=== PATIENT | male | born 1990 | race Hispanic/Latino ===

== ENCOUNTER 2021-10-17 10:01 | Emergency (ER) | payer SELFPAY ==
--- OUTSIDE RECORDS SUMMARY | 2021-10-17 10:05 | XMS REPORT | Continuity of Care Document ---
:1990 Author Organization [facility] t Address [address] [place] [address] Care Team Providers Name Role Phone PCP, DOES NOT HAVE A Primary Care Physician Unavailable Cristy Long Attending Clinician Cristy WEBB Attending Clinician Unavailable Phuong Long Attending Clinician Jose Luis HIGGINBOTHAM Attending Clinician Unavailable Mihaela Miller Attending Clinician Dianne HIGGINBOTHAM, T Attending Clinician Unavailable Mihaela GOODRICH Attending Clinician Unavailable Payers Payer Name Policy Type Policy Number Effective Date Expiration Date S ource Problems Condition Condition Condition Status Onset Resolution Last Treating Co mments Source Name Details Category Date Date Treatment Clinician Date Rhabdomyol Rhabdomyol Disease [facility] 2014[facility] 10-12 ity of 00:00: [place] 00 [facility] Branch Drug abuse Drug abuse Disease Active 2014-09 U nivers 10-12 ity of 00:00: [place] 00 Medical Branch Attention Attention Disease Active Overview: Univers deficit deficit 05-08 Formattin ity o f hyperactiv hyperactiv 00:00: g of this [place] ity ity 00 note Medical disorder disorder might be Bran ch (ADHD) (ADHD) different from the original. ICD10 Diagnosis Term Life Underwriter Utility Allergies, Adverse Reactions, Alerts Allergy Allergy Status Severity Reaction(s) Onset Inactive Treating Comm ents Source Name Type Date Date Clinician Mushroom Propensi Active Hives 2014-09 Univer s ty to 2-08 ity of adverse 00:00: [place] reaction 00 Medical s Branch MUSHROOM DRUG Active Hives 2014-09 Univers INGREDI 2-08 ity of 00:00: [place] 00 Medical Branch Social History Social Habit Start Date Stop Date Quantity Comments Source Exposure to Not sure University of SARS-CoV-2 [place] [facility] (event) Branch History SDOH University o f Alcohol Frequency [place] [facility] History SDOH University o f Alcohol Std [place] [facility] Drinks Branch History SDIA University o f Alcohol Binge [place] [facility] Alcohol intake 2021-06-29 2021-06-29 0 /d University of 00:00:00 00:00:00 [facility] Tobacco Comment 2015-10-16 2015-10-16 quit dipping 8 Unive rsity of 00:00:00 00:00:00 months ago [facility] Alcohol Comment 2015-10-16 2015-10-16 occasionally Univers ity of 00:00:00 00:00:00 [facility] Cigarettes smoked 2015-08-11 2015-08-11 Univers ity of current (pack per 00:00:00 00:00:00 [facility] [place] [facility]) - Reported Branch Cigarette 2015-08-11 2015-08-11 University of pack-years 00:00:00 00:00:00 [facility] Tobacco use and 2015-08-11 2015-08-11 Former user Universi ty of exposure 00:00:00 00:00:00 [facility] Sex Ass[birth year] At [birth year] Universit y of 00:00:00 00:00:00 [facility] Smoking Status Start Date Stop Date Source Current every day smoker 2015-08-11 00:00:00 Uni versity of [facility] Medications Ordered Filled Start Stop Current Ordering Indication Dosage Frequency Signature Comments Components Source Medication Medication Date Date Medication? Clinician (SIG) Name Name lidocaine-r 2020-09- No 3mL 3 mL, Univ ers acepinep-te 0-16 06-18 Topical, ity of tracaine 19:15: 19:00 ONCE, 1 [place] (L.E.T. 00 :00 dose, On Medical (LIDO-EPINE Sat Branch PH-TETRA)) 06/18/21 4-0.05-0.5 at 1415, % topical Routine gel 3 mL ibuprofen 2020-09 Yes [id number] 600mg Take 1 Univers 600 mg 0-16 tablet by ity of tablet 00:00: mouth [place] 00 every 6 Medical (six) Branch hours as needed for Pain (scale 4-6). ibuprofen 2020-09 Yes [id number] 600mg Take 1 Univers 600 mg 0-16 tablet by ity of tablet 00:00: mouth [place] 00 every 6 Medical (six) Branch hours as needed for Pain (scale 4-6). casirivimab 2020- No 1200mg 1,200 mg, Univers -imdevimab 05-13 Subcutaneo it y of (REGEN-COV 04:45: 04:23 us, ONCE, [place] (EUA)) 00 :00 1 dose, Medical injection [facility] 05/12/21 Bran ch 1,200 mg at 2345, Routine ibuprofen 2020- No 600mg 600 mg, Uni vers (IBU) 05-13 Oral, ity of tablet 600 04:00: 03:23 ONCE, 1 [place] as mg 00 :00 dose, [facility] Medical 05/12/21 at Branch 2300, TRICIA albuterol Yes [id number] 2{puff} Inhale 2 Univers 90 05-12 Puffs ity of mcg/actuati 00:00: every 4 [place] as on inhaler 00 (four) Medical hours as Branch needed for Wheezing or Shortness of Breath. benzonatate Yes [id number] 100mg Take 1 Univers 100 mg 05-12 capsule by ity of capsule 00:00: mouth 3 [place] 00 (three) Medical times Branch daily as needed for Cough. dextrometho Yes [id number] 10mL Take 10 mL Univers rphan-guaif 05-12 by mouth ity of enesin 00:00: every 6 [place] 10-100 mg/5 00 (six) Medical mL solution hours as Bran ch needed for Cough. ondansetron Yes [id number] 4mg Take 1 Univers 4 mg 05-12 tablet by ity of disintegrat 00:00: mouth [place] ing tablet 00 every 12 Medic al (twelve) Branch hours as needed for Nausea and Vomiting (N/V). albuterol Yes [id number] 2{puff} Inhale 2 Univers 90 9-09 Puffs ity of mcg/actuati 00:00: every 4 [place] as on inhaler 00 (four) Medical hours as Branch needed for Wheezing or Shortness of Breath. benzonatate 2020-0 Yes [id number] 100mg Take 1 Univers 100 mg 9-09 capsule by ity of capsule 00:00: mouth 3 [place] 00 (three) Medical times Branch daily as needed for Cough. dextrometho 2020-0 Yes [id number] 10mL Take 10 mL Univers rphan-guaif 9-09 by mouth ity of enesin 00:00: every 6 [place] 10-100 mg/5 00 (six) Medical mL solution hours as Bran ch needed for Cough. ondansetron 2020-0 Yes [id number] 4mg Take 1 Univers 4 mg 9-09 tablet by ity of disintegrat 00:00: mouth [place] ing tablet 00 every 12 Medic al (twelve) Branch hours as needed for Nausea and Vomiting (N/V). albuterol 2020-0 Yes [id number] 2{puff} Inhale 2 Univers 90 9-09 Puffs ity of mcg/actuati 00:00: every 4 [place] as on inhaler 00 (four) Medical hours as Branch needed for Wheezing or Shortness of Breath. benzonatate 2020-0 Yes [id number] 100mg Take 1 Univers 100 mg 9-09 capsule by ity of capsule 00:00: mouth 3 [place] 00 (three) Medical times Branch daily as needed for Cough. dextrometho 2020-0 Yes [id number] 10mL Take 10 mL Univers rphan-guaif 9-09 by mouth ity of enesin 00:00: every 6 [place] 10-100 mg/5 00 (six) Medical mL solution hours as Bran ch needed for Cough. ondansetron 2020-0 Yes [id number] 4mg Take 1 Univers 4 mg 9-09 tablet by ity of disintegrat 00:00: mouth [place] ing tablet 00 every 12 Medic al (twelve) Branch hours as needed for Nausea and Vomiting (N/V). albuterol 2020-0 Yes [id number] 2{puff} Inhale 2 Univers 90 9-09 Puffs ity of mcg/actuati 00:00: every 4 [place] as on inhaler 00 (four) Medical hours as Branch needed for Wheezing or Shortness of Breath. benzonatate 2020-0 Yes [id number] 100mg Take 1 Univers 100 mg 9-09 capsule by ity of capsule 00:00: mouth 3 [place] 00 (three) Medical times Branch daily as needed for Cough. dextrometho 2020-0 Yes [id number] 10mL Take 10 mL Univers rphan-guaif 9-09 by mouth ity of enesin 00:00: every 6 [place] 10-100 mg/5 00 (six) Medical mL solution hours as Bran ch needed for Cough. ondansetron 0 Yes [id number] 4mg Take 1 Univers 4 mg 9-09 tablet by ity of disintegrat 00:00: mouth [place] ing tablet 00 every 12 Medic al (twelve) Branch hours as needed for Nausea and Vomiting (N/V). albuterol Yes [id number] 2{puff} Inhale 2 Univers 90 9-09 Puffs ity of mcg/actuati 00:00: every 4 [place] as on inhaler 00 (four) Medical hours as Branch needed for Wheezing or Shortness of Breath. benzonatate 0 Yes [id number] 100mg Take 1 Univers 100 mg 9-09 capsule by ity of capsule 00:00: mouth 3 [place] 00 (three) Medical times Branch daily as needed for Cough. dextrometho 2020-0 Yes [id number] 10mL Take 10 mL Univers rphan-guaif 9-09 by mouth ity of enesin 00:00: every 6 [place] 10-100 mg/5 00 (six) Medical mL solution hours as Bran ch needed for Cough. ondansetron 0 Yes [id number] 4mg Take 1 Univers 4 mg 9-09 tablet by ity of disintegrat 00:00: mouth [place] ing tablet 00 every 12 Medic al (twelve) Branch hours as needed for Nausea and Vomiting (N/V). Immunizations Ordered Filled Immunization Date Status Comments [facility] e Immunization Name Name Td 2015-10-30 Completed University of 00:00:00 [facility] Td 2015-10-30 Completed University of 00:00:00 [facility] Td 2015-10-30 Completed University of 00:00:00 [facility] Td 2015-10-30 Completed University of 00:00:00 [facility] Td 2015-10-30 Completed University of 00:00:00 [facility] Influenza Virus 2015-08-13 Completed Universit y of Vaccine Quad IM 3+ 00:00:[facility] Influenza Virus 2015-08-13 Completed Universit y of Vaccine Quad IM 3+ 00:00:00 [facility] Influenza Virus 2015-08-13 Completed Universit y of Vaccine Quad IM 3+ 00:00:00 [facility] Influenza Virus 2015-08-13 Completed Universit y of Vaccine Quad IM 3+ 00:00:00 [facility] Influenza Virus 2015-08-13 Completed Universit y of Vaccine Quad IM 3+ 00:00:00 [facility] Vital Signs Vital Name Observation Time Observation Value Comments Source Systolic blood 2021-06-30 00:17:00 143 mm[Hg] Univer sity of pressure [facility] Diastolic blood 2021-06-30 00:17:00 91 mm[Hg] Unive rsity of [facility] Heart rate 2021-06-30 00:17:00 83 /min [facility] ty [facility] Body temperature 2021-06-30 00:17:00 37.17 [facility] [place] Respiratory rate 2021-06-30 00:17:00 19 /min [facility] [place] Body height 2021-06-30 00:17:00 172.7 cm [facility] acute hospital Body weight 2021-06-30 00:17:00 63.866 kg General acute hospital BMI 2021-06-30 00:17:00 21.41 kg/m2 General acute hospital Oxygen saturation in 2021-06-30 00:17:00 99 /min [facility] Arterial blood by [facility] Pulse oximetry Branch Systolic blood 2021-06-18 17:22:00 133 mm[Hg] Univer sity of pressure [facility] Diastolic blood 2021-06-18 17:22:00 89 mm[Hg] Unive rsity of pressure [facility] Heart rate 2021-06-18 17:22:00 78 /min Universi ty [facility] Body temperature 2021-06-18 17:22:00 36.78 [facility] [place] Respiratory rate 2021-06-18 17:22:00 20 /min [facility] [place] Body height 2021-06-18 17:22:00 170.2 cm Universi ty of [place] [facility] Body weight 2021-06-18 17:22:00 68.04 kg Universi ty of [place] [facility] BMI 2021-06-18 17:22:00 23.49 kg/m2 Universi ty of [place] [facility] Oxygen saturation in 2021-06-18 17:22:00 100 /min University of Arterial blood by [facility] Pulse oximetry Branch Systolic blood 2021-05-13 04:00:00 149 mm[Hg] Univer sity of pressure [place] [facility] Diastolic blood 2021-05-13 04:00:00 94 mm[Hg] Unive rsity of pressure [place] [facility] Heart rate 2021-05-13 04:00:00 91 /min Universi ty of [place] [facility] Respiratory rate 2021-05-13 04:00:00 16 /min [facility] [place] [facility] [place] Oxygen saturation in 2021-05-13 04:00:00 99 /min University of Arterial blood by [facility] Pulse oximetry Branch Body height 2021-05-13 02:53:00 170.2 cm Universi ty of [place] [facility] Body weight 2021-05-13 02:53:00 68.04 kg Universi ty of [place] [facility] BMI 2021-05-13 02:53:00 23.49 kg/m2 Universi ty [facility] [place] [facility] Body temperature 2021-05-13 02:53:[address] [facility] Procedures Procedure Date / Time Performed Performing Clinician Vicki e GENERAL 2021-06-30 00:42:43 Ross Webb [place] o f [facility] ASSIGNMENT OF BENEFITS 2021-06-30 00:30:21 Doctor Unassigned, No [facility] Medical Branch NOTICE OF PRIVACY 2021-06-30 00:12:01 Doctor Unassigned, No Univ ersity [facility] PRACTICES [facility] Medical Branch CONSENT/REFUSAL FOR 2021-06-30 00:11:45 Doctor Unassigned, No Un iversity of [place] DIAGNOSIS AND [facility] Medical Branch TREATMENT ED LACERATION REPAIR 2021-06-18 19:10:50 [facility] CONSENT/REFUSAL FOR 2021-06-18 16:57:14 Doctor Unassigned, No [facility] Name Medical Branch TREATMENT COVID-19 (ID NOW RAPID 2021-05-13 02:59:00 Tee Goodrich [facility] TESTING) [facility] NOTICE OF PRIVACY 2021-05-13 02:39:53 Doctor Unassigned, No [facility] PRACTICES Name [facility] Branch CONSENT/REFUSAL FOR 2021-05-13 02:39:34 Doctor Unassigned, No [facility] [place] DIAGNOSIS AND Name Medical Branch TREATMENT Encounters Start End Encounter Admission Attending Care Care Encounter Source Date/Time Date/Time Type Type Clinicians Facility Department ID 2021-06-29 2021-06-29 Emergency [facility] [id number] Univers 19:20:00 19:56:00 Ross Keller [id number] i ty of [place] [id number] [place] [id number] [place] [id number] [place] 2021-06-29 2021-06-29 Emergency X [facility] ERT [id number] Univers 19:20:00 19:56:00 ROSS cunha of [facility] 2021-06-18 2021-06-18 Emergency Tom Mckinney [facility] [id number] Univers 12:30:00 14:34:00 Phuong Keller [id number] i ty of [place] [id number] [place] [phone] [facility] 084 [place] 2021-06-18 2021-06-18 Emergency X [facility] ERT [id number] Univers 11:58:00 11:58:00 ity of [facility] 2021-05-14 2021-05-14 Telephone DELORES Amaya [id number] Univers 00:00:00 00:00:00 Dottie BARRERA [id number] it y [facility] [id number] [place] [id number] [facility] 019 Branch 2021-05-12 2021-05-13 Emergency Joleen [facility] [id number] Univers 22:24:00 00:30:00 Tee Keller [id number] i ty of [place] [id number] [facility] [id number] [facility] 084 Branch 2021-05-13 2021-05-13 Letter DELORES Dean [id number] Univers 00:00:00 00:00:00 (Out) Tracy BARRERA [id number] it y of [facility] [id number] [facility] [phone] [facility] 019 Branch 2021-05-12 2021-05-12 Emergency X JOLEEN [facility] ERT [id number] Univers 21:40:00 21:40:00 TEE cunha [facility] Results Test Description Test Time Test Comments Results Result Comments Source COVID-19 (ID NOW RAPID TESTING) 2021-05-13 03:17:35 Test Item Value Reference Range Interpretation Comme nts SARS-CoV-2 Rapid ID NOW (test code Positive Not Detected A = [id number]) GISELLE (test code = GISELLE) ID NOW COVID-19 Assay is an isothermal nucleic acid amplification test intended for the qualitative detection of nucleic acid from SARS-CoV-2 viral RNA in nasopharyngeal ([employer]ARET[employer] INSPECTOR) specimens. It is used under Emergency Use Authorization (EUA) by FDA. The limit of detection (LOD) of the assay is 125 Genome Equivalents/mL. A positive result is indicative of the presence of SARS-CoV-2 RNA. ?Clinical correlation with patient history and other diagnostic information is necessary to determine patient infection status. A negative (Not Detected) result does not preclude SARS-CoV-2 infection. In patients with a high suspicion of SARS-CoV-2 infection, negative results should be treated as presumptive negative and a new specimen should be tested with alternative nucleic acid amplification molecular test. Invalid: Please collect a new specimen for repeat patient testing if clinically indicated. Lab Interpretation (test code = Abnormal 34676-7) [facility]
[2021-10-17 10:57] LABS: Absolute Lymphocytes (CBC) 2.3 K/uL (0.7-4.9); Hematocrit 45.3 % (39.6-49.0); Lymphocytes % 25.7 % (15.3-44.8); MPV 7.5 fL (7.6-11.3); RBC Red Blood Cell Count 5.23 M/uL (4.33-5.43)
[2021-10-17 11:17] LABS: ALT/SGPT 19 U/L (12-78); AST/SGOT 9 U/L (15-37); Albumin 3.9 g/dL (3.4-5.0); Alkaline Phosphatase 91 U/L (45-117); BUN Blood Urea Nitrogen 10 mg/dL (7-18); Bicarbonate 30 mmol/L (21-32); Bilirubin Direct < 0.1 mg/dL (0-0.2); Bilirubin Total 0.2 mg/dL (0.2-1.0); Glucose Level 87 mg/dL (74-106); Lipase 167 U/L (73-393); Protein, Total 7.8 g/dL (6.4-8.2); Sodium Level 139 mmol/L (136-145)
--- NOTE | 2021-10-17 11:49 | RAD REPORT ---
EXAM DESCRIPTION: CTAbdomen Pelvis W Contrast - 10/17/2021 11:38 am CLINICAL HISTORY: RLQ abd pain, rule out appendicitis COMPARISON: No comparisons TECHNIQUE: CT of the abdomen and pelvis was performed. All CT scans are performed using dose optimization technique as appropriate and may include automated exposure control or mA/KV adjustment according to patient size. FINDINGS: Lower chest: No acute abnormality. Liver: No acute abnormality or suspicious lesions. Biliary: No biliary ductal dilatation. Stomach: No significant focal abnormality. Duodenum: No significant focal abnormality. Pancreas: No significant abnormality. Spleen: No significant abnormality. Adrenal: No suspicious lesions. Kidney/ureter: No hydronephrosis. No renal calculi. Retroperitoneum: No retroperitoneal adenopathy. Vascular: No aneurysm. Bowel: No significant focal abnormality. Normal appendix. Peritoneum: No ascites or free air. Bladder: Circumferential bladder wall thickening. Reproductive: No adnexal masses. Bones: No acute fracture. Other: n/a IMPRESSION: Circumferential bladder wall thickening could reflect cystitis. Normal appendix. No othe r acute findings are identified.
[2021-10-17] MEDS ORDERED: MORPHINE 4 MG/ML SYR ONE (11:52)
[2021-10-17] MEDS ORDERED: ONDANSETRON 4 MG/2 ML VIAL ONE (11:53)
[2021-10-17 12:15] LABS: Urine Blood Negative (Negative); Urine Glucose Negative (Negative); Urine Protein Negative (Negative); Urine Specific Gravity 1.015 (1.005-1.030); Urine pH 7.5 (5.0-7.0)
[2021-10-17 12:28] LABS: Urine Bacteria NONE SEEN /HPF (NONE SEEN); Urine RBC <5 /HPF (NONE SEEN)
--- NOTE | 2021-10-17 12:41 | EDPHYS ---
Physician Documentation [facility] Name: Jose J Hanks Age: 31 yrs Sex: Male : 1990 Arrival Date: 10/17/2021 Time: 10:04 Bed 27 Private MD: ED Physician Duke Weston HPI: 10/17 11:22 This 31 yrs old Male presents to ER via Ambulatory with complaints of rn Abdominal Pain. 11:22 The patient presents with abdominal pain right lower quadrant. Onset: The rn symptoms/episode began/occurred 1 week(s) ago. The symptoms do not radiate. Associated signs and symptoms: Pertinent positives: nausea, Pertinent negatives: blood in stools, chest pain, constipation, fever, hematuria, shortness of breath, testicular pain, vomiting, vomiting blood. The symptoms are described as crampy, sharp. Modifying factors: The symptoms are alleviated by nothing, the symptoms are aggravated by movement, touching the area. Severity of pain: At its worst the pain was moderate in the emergency department the pain is unchanged. The patient has not experienced similar symptoms in the past. The patient has not recently seen a physician. Historical: - Allergies: 10:28 mushrooms; ll1 - PMHx: 10:28 Hypertensive disorder; Hypercholesterolemia; bad liver, heart failure; ll1 - PSHx: 10:28 None; ll1 - Immunization history:: Client reports having NOT received the Covid vaccine. - Social history:: Smoking status: Patient reports the use of cigarette tobacco products, smokes one-half pack cigarettes per day. - Family history:: not pertinent. - Hospitalizations: : No recent hospitalization is reported. ROS: 11:22 Constitutional: Negative for fever, chills, and weight loss, Eyes: Negative for injury, rn pain, redness, and discharge, Cardiovascular: Negative for chest pain, palpitations, and edema, Respiratory: Negative for shortness of breath, cough, wheezing, and pleuritic chest pain, Abdomen/GI: Negative for vomiting, diarrhea, and constipation, Back: Negative for injury and pain, : Negative for injury, bleeding, discharge, and swelling, MS/Extremity: Negative for injury and deformity, Skin: Negative for injury, rash, and discoloration, Neuro: Negative for headache, weakness, numbness, tingling, and seizure. Exam: 11:38 Constitutional: This is a well developed, well nourished patient who is awake, alert, rn and in no acute distress. Head/Face: Normocephalic, atraumatic. Eyes: Periorbital areas with no swelling, redness, or edema. Cardiovascular: Regular rate and rhythm. No pulse deficits. Respiratory: No increased work of breathing, no retractions or nasal flaring. Abdomen/GI: soft, mild RLQ tenderness, no rebound or masses Skin: Warm, dry MS/ Extremity: Pulses equal, no cyanosis. Neuro: Awake and alert, GCS 15 Vital Signs: 10:28 BP 131 / 90; Pulse 81; Resp 17; Temp 98.6; Pulse Ox 100% ; Weight 74.84 kg; Height 5 ll1 ft. 7 in. (170.18 cm); Pain 9/10; 12:29 BP 129 / 93; Pulse 65; Resp 14; Pulse Ox 98% ; Pain 0/10; lr4 10:28 Body Mass Index 25.84 (74.84 kg, 170.18 cm) ll1 MDM: 10:33 Patient medically screened. rn 12:39 Differential diagnosis: appendicitis, diverticulitis, non-specific abd pain, rn Ureterolithiasis, urinary tract infection. Data reviewed: vital signs, nurses notes, lab test result(s), radiologic studies, CT scan, and as a result, I will discharge patient. Counseling: I had a detailed discussion with the patient and/or guardian regarding: the historical points, exam findings, and any diagnostic results supporting the discharge/admit diagnosis, lab results, radiology results, the need for outpatient follow up, to return to the emergency department if symptoms worsen or persist or if there are any questions or concerns that arise at home. Response to treatment: the patient's symptoms have markedly improved after treatment, and as a result, I will discharge patient. Special discussion: I discussed with the patient/guardian in detail that at this point there is no indication for admission to the hospital. It is understood, however, that if the symptoms persist or worsen the patient needs to return immediately for re-evaluation. 10/17 10:38 Order name: Basic Metabolic Panel; Complete Time: 11: rn 10/17 10:38 Order name: CBC with Diff; Complete Time: 11: rn 10/17 10:38 Order name: Hepatic Function; Complete Time: 11: rn 10/17 10:38 Order name: Lipase; Complete Time: 11:22 rn 10/17 11:59 Order name: Urine Culture rn 10/17 11:59 Order name: Urine Microscopic Only; Complete Time: 12:38 rn 10/17 10:38 Order name: IV Saline Lock; Complete Time: 11:48 rn 10/17 10:38 Order name: Labs collected and sent; Complete Time: 11:48 rn 10/17 10:38 Order name: CT Abd/Pelvis - IV Contrast Only; Complete Time: 11:58 rn 10/17 11:59 Order name: Urine Dipstick-Ancillary (obtain specimen); Complete Time: 12:17 rn 10/17 12:15 Order name: Urine Dipstick-Ancillary; Complete Time: 12:38 EDMS Administered Medications: 11:55 Drug: morphine 4 mg Route: IVP; Site: right antecubital; ss7 11:55 Drug: Zofran (Ondansetron) 4 mg Route: IVP; Site: right antecubital; ss7 Disposition Summary: 10/17/21 12:40 Discharge Ordered Location: Home rn Problem: new rn Symptoms: have improved rn Condition: Stable rn Diagnosis - Acute cystitis rn - Lower abdominal pain, unspecified rn Followup: rn - With: Private Physician - When: As needed - Reason: Recheck today's complaints, Re-evaluation by your physician Discharge Instructions: - Discharge Summary Sheet rn - Abdominal Pain, Adult rn Forms: - Medication Reconciliation Form rn - Thank You Letter rn - Antibiotic manager of internal audit - Prescription Opioid Use rn - Work release form [email or web address] Prescriptions: - Cipro 500 mg Oral Tablet - take 1 tablet by ORAL route every 12 hours for 7 days; 14 tablet; Refills: 0, rn Product Selection Permitted Signatures: Dispatcher [employer] EDMS Duke Weston MD MD rn Lewis, Lynsay, RN RN ll1 Cheyanne Carlton RN RN ss7 Corrections: (The following items were deleted from the chart) 11:38 11:22 Constitutional: Negative for fever, chills, and weight loss, Eyes: Negative for rn injury, pain, redness, and discharge, Cardiovascular: Negative for chest pain, palpitations, and edema, Respiratory: Negative for shortness of breath, cough, wheezing, and pleuritic chest pain, Abdomen/GI: Negative for vomiting, diarrhea, and constipation, Back: Negative for injury and pain, : Negative for injury, bleeding, discharge, and swelling, MS/Extremity: Negative for injury and deformity, Skin: Negative for injury, rash, and discoloration, Neuro: Negative for headache, weakness, numbness, tingling, and seizure, rn
--- NOTE | 2021-10-17 12:41 | ER ---
Nurse's Notes [facility] Name: Jose J Hanks Age: 31 yrs Sex: Male : 1990 Arrival Date: 10/17/2021 Time: 10:04 Bed 27 Private MD: Diagnosis: Acute cystitis;Lower abdominal pain, unspecified Presentation: 10/17 10:28 Chief complaint: Patient states: R sided abd pain for 1 week. No fever. Coronavirus ll1 screen: Vaccine status: Patient reports being unvaccinated. Client denies travel out of the [place] in the last 14 days. At this time, the client does not indicate any symptoms associated with coronavirus-19. Ebola Screen: Patient denies travel to an Ebola-affected area in the 21 days before illness onset. Initial Sepsis Screen: Does the patient meet any 2 criteria? No. Patient's initial sepsis screen is negative. Does the patient have a suspected source of infection? Yes: Acute abdominal pain. Risk Assessment: Do you want to hurt yourself or someone else? Patient reports no desire to harm self or others. Onset of symptoms was October 10, 2021. 10:28 Method Of Arrival: Ambulatory ll1 10:28 Acuity: BRICE 3 ll1 Historical: - Allergies: 10:28 mushrooms; ll1 - PMHx: 10:28 Hypertensive disorder; Hypercholesterolemia; bad liver, heart failure; ll1 - PSHx: 10:28 None; ll1 - Immunization history:: Client reports having NOT received the Covid vaccine. - Social history:: Smoking status: Patient reports the use of cigarette tobacco products, smokes one-half pack cigarettes per day. - Family history:: not pertinent. - Hospitalizations: : No recent hospitalization is reported. Screenin:17 Abuse screen: Denies threats or abuse. Nutritional screening: No deficits noted. lr4 Tuberculosis screening: No symptoms or risk factors identified. Fall Risk None identified. Assessment: 11:30 General: Appears in no apparent distress. comfortable, well groomed, well developed, lr4 Behavior is calm, cooperative. 11:30 Pain: Complains of pain in abdomen Pain radiates to chest Pain currently is 9 out of 10 lr4 on a pain scale. Neuro: No deficits noted. Cardiovascular: No deficits noted. Respiratory: No deficits noted. GI: Bowel sounds present X 4 quads. Abd is soft and non tender. 13:18 Reassessment: Pt departed ed ambulatory with all personal effects, pt in nad, Patient lr4 states symptoms have improved. Vital Signs: 10:28 BP 131 / 90; Pulse 81; Resp 17; Temp 98.6; Pulse Ox 100% ; Weight 74.84 kg; Height 5 ll1 ft. 7 in. (170.18 cm); Pain 9/10; 12:29 BP 129 / 93; Pulse 65; Resp 14; Pulse Ox 98% ; Pain 0/10; lr4 10:28 Body Mass Index 25.84 (74.84 kg, 170.18 cm) ll1 ED Course: 10:04 Patient arrived in ED. as 10:29 Triage completed. ll1 10:29 Arm band placed on Patient placed in an exam room, on a stretcher. ll1 10:33 Duke Weston MD is Attending Physician. rn 11:38 CT Abd/Pelvis - IV Contrast Only In Process Unspecified. EDMS 12:17 Urine Culture Sent. lr4 12:17 Urine Microscopic Only Sent. lr4 13:17 No provider procedures requiring assistance completed. lr4 13:18 Patient has correct armband on for positive identification. Bed in low position. Call lr4 light in reach. 13:18 IV discontinued. lr4 Administered Medications: 11:55 Drug: morphine 4 mg Route: IVP; Site: right antecubital; ss7 11:55 Drug: Zofran (Ondansetron) 4 mg Route: IVP; Site: right antecubital; ss7 Outcome: 12:40 Discharge ordered by . rn 13:18 Condition: good lr4 13:18 Discharged to home ambulatory. lr4 13:18 Discharge instructions given to patient. 13:19 Patient left the ED. lr4 Signatures: Dispatcher [employer] Izzy Frederick Roman, MD MD rn Lewis, Lynsay, RN RN ll1 Cheyanne Carlton RN RN ss7 Ernestine Casper RN RN lr4
[2021-10-17 14:33] VITALS: TEMP 98.6
[2021-10-17 14:34] VITALS: BP 129/93; O2SAT 98
== END 2021-10-17 13:19 | disposition home or self-care (01) ==
LOC: ER 10:01
DX: N30.00 Acute cystitis without hematuria (principal); I10 Essential (primary) hypertension; F17.210 Nicotine dependence, cigarettes, uncomplicated; Z91.018 Allergy to other foods
CPT/HCPCS: 36415; 74177; 80048; 80076; 81003; 81015; 83690; 85025; 87086; 87088; 96374; 96375; 99283; J2405; Q9967

== ENCOUNTER 2021-10-20 09:46 | Emergency (ER) | payer SELFPAY ==
--- OUTSIDE RECORDS SUMMARY | 2021-10-20 09:49 | XMS REPORT | Continuity of Care Document ---
:1990 Author Organization [facility] t Address [address] [place] [address] Care Team Providers Name Role Phone PCP, [...] Date Rhabdomyol Rhabdomyol Disease Active 2014-09 U nivers ysis ysis 10-12 ity of 00:00: [place] 00 [facility] Branch Drug abuse Drug abuse Disease Active 2014-09 U nivers 10-12 ity of 00:00: [place] 00 [facility] Attention Attention Disease Active Overview: Univers deficit deficit 9-05 Formattin ity o f hyperactiv hyperactiv 00:00: g of this [place] ity ity 00 note Medical disorder disorder might be Bran ch (ADHD) (ADHD) different from the original. ICD10 Diagnosis Term Wares Sorter Utility Allergies, Adverse Reactions, Alerts Allergy Allergy [...] Quantity Comments Source Exposure to Not sure [place] of SARS-CoV-2 [place] [facility] (event) Branch History SDOH University o f Alcohol Frequency [place] [facility] ed[facility] History SDWY University o f Alcohol Std [place] [facility] Drinks Branch History SDWY University o f Alcohol Binge [place] [facility] Alcohol intake 2021-06-29 2021-06-29 0 /d University of 00:00:00 00:00:00 [facility] Tobacco Comment 2015-10-16 2015-10-16 quit dipping 8 Unive rsity of 00:00:00 00:00:00 months ago [facility] Alcohol Comment 2015-10-16 2015-10-16 occasionally Univers ity of 00:00:00 00:00:00 [facility] Cigarettes smoked 2015-08-11 2015-08-11 Univers ity of current (pack per 00:00:00 00:00:00 [facility] ) - Reported Branch Cigarette 2015-08-11 2015-08-11 University of pack-years 00:00:00 00:00:00 [facility] Tobacco use and 2015-08-11 2015-08-11 Former user Universi ty of exposure 00:00:00 00:00:00 [facility] Sex Ass[birth year] At [birth year] Universit y of 00:00:00 00:00:00 [facility] Smoking Status Start Date Stop Date Source Current every day smoker 2015-08-11 00:00:00 Uni versity of [facility] Medications Ordered Filled Start Stop Current Ordering [...] Routine gel 3 mL ibuprofen 2020-09 Yes [id number] 600mg Take 1 Univers 600 mg 0-16 tablet by ity of tablet 00:00: mouth [place] 00 every 6 Medical (six) Branch hours as needed for Pain (scale 4-6). ibuprofen 2020-09 Yes [id number] 600mg Take 1 Univers 600 mg 0-16 tablet by ity of tablet 00:00: mouth [place] 00 every 6 Medical (six) Branch hours as needed for Pain (scale 4-6). casirivimab 2020- No 1200mg 1,200 mg, Univers -imdevimab 05-13 Subcutaneo it y of (REGEN-COV 04:45: 04:23 us, ONCE, [place] (EUA)) 00 :00 1 dose, Medical injection Carla 05/12/21 Bran ch 1,200 mg at 2345, Routine ibuprofen 2020- No 600mg 600 mg, Uni vers (IBU) 05-13 Oral, ity of tablet 600 04:00: 03:23 ONCE, 1 [place] as mg 00 :00 dose, Carla Medical 05/12/21 at Branch 2300, TRICIA albuterol Yes [id number] 2{puff} Inhale 2 Univers 90 9-09 Puffs ity of mcg/actuati 00:00: every 4 [place] as on inhaler 00 (four) Medical hours as Branch needed for Wheezing or Shortness of Breath. benzonatate Yes [id number] 100mg Take 1 Univers 100 mg 05-12 capsule by ity of capsule 00:00: mouth 3 [place] 00 (three) Medical times Branch daily as needed for Cough. dextrometho Yes [id number] 10mL Take 10 mL Univers rphan-guaif 05-12 by mouth ity of enesin 00:00: every 6 [place] 10-100 mg/5 00 (six) Medical mL solution hours as Bran ch needed for Cough. ondansetron Yes [id number] 4mg Take 1 Univers 4 mg - tablet by ity of disintegrat 00:00: mouth [place] ing tablet 00 every 12 Medic al (twelve) Branch hours as needed for Nausea and Vomiting (N/V). albuterol Yes [id number] 2{puff} Inhale 2 Univers 90 9-09 Puffs ity of mcg/actuati 00:00: every 4 [place] as on inhaler 00 (four) Medical hours as Branch needed for Wheezing or Shortness of Breath. benzonatate 2020-0 Yes [id number] 100mg Take 1 Univers 100 mg 9-09 capsule by ity of capsule 00:00: mouth 3 [place] 00 (three) Medical times Branch daily as needed for Cough. dextrometho 2020-0 Yes [id number] 10mL Take 10 mL Univers rphan-guaif 9-09 by mouth ity of enesin 00:00: every 6 [place] 10-100 mg/5 00 (six) Medical mL solution hours as Bran ch needed for Cough. ondansetron 2020-0 Yes [id number] 4mg Take 1 Univers 4 mg 9-09 tablet by ity of disintegrat 00:00: mouth [place] ing tablet 00 every 12 Medic al (twelve) Branch hours as needed for Nausea and Vomiting (N/V). albuterol 2020-0 Yes [id number] 2{puff} Inhale 2 Univers 90 9-09 Puffs ity of mcg/actuati 00:00: every 4 [place] as on inhaler 00 (four) Medical hours as Branch needed for Wheezing or Shortness of Breath. benzonatate 2020-0 Yes [id number] 100mg Take 1 Univers 100 mg 9-09 capsule by ity of capsule 00:00: mouth 3 [place] 00 (three) Medical times Branch daily as needed for Cough. dextrometho 2020-0 Yes [id number] 10mL Take 10 mL Univers rphan-guaif 9-09 by mouth ity of enesin 00:00: every 6 [place] 10-100 mg/5 00 (six) Medical mL solution hours as Bran ch needed for Cough. ondansetron 2020-0 Yes [id number] 4mg Take 1 Univers 4 mg 9-09 tablet by ity of disintegrat 00:00: mouth [place] ing tablet 00 every 12 Medic al (twelve) Branch hours as needed for Nausea and Vomiting (N/V). albuterol 2020-0 Yes [id number] 2{puff} Inhale 2 Univers 90 9-09 Puffs ity of mcg/actuati 00:00: every 4 [place] as on inhaler 00 (four) Medical hours as Branch needed for Wheezing or Shortness of Breath. benzonatate 2020-0 Yes [id number] 100mg Take 1 Univers 100 mg 9-09 capsule by ity of capsule 00:00: mouth 3 [place] 00 (three) Medical times Branch daily as needed for Cough. dextrometho 2020-0 Yes [id number] 10mL Take 10 mL Univers rphan-guaif 9-09 by mouth ity of enesin 00:00: every 6 [place] 10-100 mg/5 00 (six) Medical mL solution hours as Bran ch needed for Cough. ondansetron 0 Yes [id number] 4mg Take 1 Univers 4 mg 9-09 tablet by ity of disintegrat 00:00: mouth [place] ing tablet 00 every 12 Medic al (twelve) Branch hours as needed for Nausea and Vomiting (N/V). albuterol Yes [id number] 2{puff} Inhale 2 Univers 90 9-09 Puffs ity of mcg/actuati 00:00: every 4 [place] as on inhaler 00 (four) Medical hours as Branch needed for Wheezing or Shortness of Breath. benzonatate 0 Yes [id number] 100mg Take 1 Univers 100 mg 9-09 capsule by ity of capsule 00:00: mouth 3 [place] 00 (three) Medical times Branch daily as needed for Cough. dextrometho 0 Yes [id number] 10mL Take 10 mL Univers rphan-guaif 9-09 by mouth ity of enesin 00:00: every 6 [place] 10-100 mg/5 00 (six) Medical mL solution hours as Bran ch needed for Cough. ondansetron 0 Yes [id number] 4mg Take 1 Univers 4 mg 9-09 tablet by ity of disintegrat 00:00: mouth [place] ing tablet 00 every 12 Medic al (twelve) Branch hours as needed for Nausea and Vomiting (N/V). Immunizations Ordered Filled Immunization Date Status Comments [facility] e Immunization Name Name Td 2015-10-30 Completed University of 00:00:00 [facility] Td 2015-10-30 Completed University of 00:00:00 [facility] Td 2015-10-30 Completed University of 00:00:00 [facility] Td 2015-10-30 Completed University of 00:00:00 [facility] Td 2015-10-30 Completed University of 00:00:00 [facility] Influenza Virus 2015-08-13 Completed Universit y of Vaccine Quad IM 3+ 00:00:00 [facility] Branch Influenza Virus 2015-08-13 Completed Universit y of Vaccine Quad IM 3+ 00:00:00 [facility] Branch Influenza Virus 2015-08-13 Completed Universit y of Vaccine Quad IM 3+ 00:00:00 [facility] Influenza Virus 2015-08-13 Completed Universit y of Vaccine Quad IM 3+ 00:00:00 [facility] Influenza Virus 2015-08-13 Completed Universit y of Vaccine Quad IM 3+ 00:00:00 [facility] Vital Signs Vital Name Observation Time Observation Value Comments Source Systolic blood 2021-06-30 00:17:00 143 mm[Hg] Univer sity of pressure [facility] Diastolic blood 2021-06-30 00:17:00 91 mm[Hg] Unive rsity of pressure [facility] Heart rate 2021-06-30 00:17:00 83 /min [facility] Body temperature 2021-06-30 00:17:00 37.17 Irish [facility] Respiratory rate 2021-06-30 00:17:00 19 /min [facility] Body height 2021-06-30 00:17:00 172.7 cm [facility] Body weight 2021-06-30 00:17:00 63.866 kg [facility] BMI 2021-06-30 00:17:00 21.41 kg/m2 [facility] Oxygen saturation in 2021-06-30 00:17:00 99 /min [facility] Arterial blood by [facility] Pulse oximetry Branch Systolic blood 2021-06-18 17:22:00 133 mm[Hg] Univer sity of pressure [facility] Diastolic blood 2021-06-18 17:22:00 89 mm[Hg] Unive rsity of pressure [facility] Heart rate 2021-06-18 17:22:00 78 /min Universi ty [facility] Body temperature 2021-06-18 17:22:00 36.78 Irish [facility] Respiratory rate 2021-06-18 17:22:00 20 /min [facility] [place] [facility] Body height 2021-06-18 17:22:00 170.2 cm Universi ty [facility] [place] [facility] Body weight 2021-06-18 17:22:00 68.04 kg Universi ty [facility] [place] [facility] BMI 2021-06-18 17:22:00 23.49 kg/m2 Universi ty [facility] [place] [facility] Oxygen saturation in 2021-06-18 17:22:00 100 /min University of Arterial blood by [facility] Pulse oximetry Branch Systolic blood 2021-05-13 04:00:00 149 mm[Hg] Univer sity of pressure [place] [facility] Diastolic blood 2021-05-13 04:00:00 94 mm[Hg] Unive rsity of pressure [place] [facility] Heart rate 2021-05-13 04:00:00 91 /min Universi ty [facility] [place] [facility] Respiratory rate 2021-05-13 04:00:00 16 /min [facility] [place] [facility] [place] Oxygen saturation in 2021-05-13 04:00:00 99 /min University of Arterial blood by [facility] Pulse oximetry Branch Body height 2021-05-13 02:53:00 170.2 cm Universi ty [facility] [place] [facility] Body weight 2021-05-13 02:53:00 68.04 kg Universi ty [facility] [place] [facility] BMI 2021-05-13 02:53:00 23.49 kg/m2 Universi ty [facility] [place] [facility] Body temperature 2021-05-13 02:53:00 37.78 [place] [facility] Procedure Date / Time Performed Performing Clinician Vicki marshall GENERAL 2021-06-30 00:42:43 Ross Webb [place] o f [facility] ASSIGNMENT OF BENEFITS 2021-06-30 00:30:21 Doctor Unassigned, No [facility] Medical Branch NOTICE OF PRIVACY 2021-06-30 00:12:01 Doctor Unassigned, No Univ ersity [facility] PRACTICES Name Medical Branch CONSENT/REFUSAL FOR 2021-06-30 00:11:45 Doctor Unassigned, No [facility] Medical Branch TREATMENT ED LACERATION REPAIR 2021-06-18 19:10:50 Tom Mckinney [facility] CONSENT/REFUSAL FOR 2021-06-18 16:57:14 Doctor Unassigned, No Un iversity of [place] DIAGNOSIS AND Name Medical Branch TREATMENT COVID-19 (ID NOW RAPID 2021-05-13 02:59:00 Tee Goodrich [facility] TESTING) [facility] NOTICE OF PRIVACY 2021-05-13 02:39:53 Doctor Unassigned, No [facility] PRACTICES Name [facility] Branch CONSENT/REFUSAL FOR 2021-05-13 02:39:34 Doctor Unassigned, No [facility] [place] DIAGNOSIS AND Name Medical Branch TREATMENT Encounters Start End Encounter Admission Attending Care Care Encounter Source Date/Time Date/Time Type Type Clinicians Facility Department ID 2021-06-29 2021-06-29 Emergency [facility] [id number] Univers 19:20:00 19:56:00 Ross Keller [id number] i ty of [place] [id number] [place] [id number] [place] [id number] [place] 2021-06-29 2021-06-29 Emergency X [facility] ERT [id number] Univers 19:20:00 19:56:00 ROSS cunha of [facility] 2021-06-18 2021-06-18 Emergency Tom Mckinney [facility] [id number] Univers 12:30:00 14:34:00 Phuong Keller [id number] i ty [facility] [id number] [place] [id number] [place] [id number] [place] 2021-06-18 2021-06-18 Emergency X [facility] ERT [id number] Univers 11:58:00 11:58:00 ity of [facility] 2021-05-14 2021-05-14 Telephone DELORES Amaya [id number] Univers 00:00:00 00:00:00 Dottie BARRERA [id number] it y [facility] [id number] [place] [id number] [facility] 019 Branch 2021-05-12 2021-05-13 Emergency Joleen [facility] [id number] Univers 22:24:00 00:30:00 Tee Keller [id number] i ty of [place] [id number] [facility] [id number] [facility] 084 Branch 2021-05-13 2021-05-13 Letter DELORES Dean [id number] Univers 00:00:00 00:00:00 (Out) Tracy BARRERA [id number] it y of [facility] [id number] [facility] [id number] [facility] 019 Branch 2021-05-12 2021-05-12 Emergency X JOLEEN [facility] ERT [id number] Univers 21:40:00 21:40:00 TEE ity [facility] Results Test Description Test Time Test Comments Results Result Comments Source COVID-19 (ID NOW RAPID TESTING) 2021-05-13 03:17:35 Test Item Value Reference Range Interpretation Comme nts SARS-CoV-2 Rapid ID NOW (test code Positive Not Detected A = [id number]) GISELLE (test code = GISELLE) ID NOW COVID-19 Assay is an isothermal nucleic acid amplification test intended for the qualitative detection of nucleic acid from SARS-CoV-2 viral RNA in nasopharyngeal ([employer]) specimens. It is used under Emergency Use [...] indicated. Lab Interpretation (test code = Abnormal [id number]) [facility]
--- NOTE | 2021-10-20 10:50 | ER ---
Nurse's Notes [facility] Name: Jose J Hanks Age: 31 yrs Sex: Male : 1990 Arrival Date: 10/20/2021 Time: 09:49 Bed 7 Private MD: Diagnosis: Presentation: 10/20 10:00 Chief complaint: Patient states: he was diagnosed with a bladder infection Sunday ap3 10/17/2021. Patient reports his symptoms have not resolved and has continued right sided lower abdominal pain. Coronavirus screen: At this time, the client does not indicate any symptoms associated with coronavirus-19. Ebola Screen: No symptoms or risks identified at this time. Initial Sepsis Screen: Does the patient meet any 2 criteria? HR > 90 bpm. Does the patient have a suspected source of infection? No. Patient's initial sepsis screen is negative. Risk Assessment: Do you want to hurt yourself or someone else? Patient reports no desire to harm self or others. Onset of symptoms was October 17, 2021. 10:00 Method Of Arrival: Ambulatory ap3 10:00 Acuity: BRIEC 3 ap3 10:49 Note charge nurse attempted to phone patient and notify him we had a room available. ap3 patient did not answer the phone call. Triage Assessment: 10:03 General: Appears in no apparent distress. comfortable, Behavior is calm, cooperative, ap3 appropriate for age. Pain: Complains of pain in right lower quadrant Pain currently is 9 out of 10 on a pain scale. Pain began gradually, Sunday10/17/2021. Neuro: Level of Consciousness is awake, alert, obeys commands, Oriented to person, place, time, situation, Appropriate for age Gait is steady, Speech is normal. Cardiovascular: Patient's skin is warm and dry. Respiratory: Airway is patent Respiratory effort is even, unlabored, Respiratory pattern is regular, symmetrical. GI: Reports lower abdominal pain. : Reports urinary frequency. Historical: - Allergies: 10:01 mushrooms; ap3 - Home Meds: 10: None [Active]; ap3 - PMHx: 10:01 bad liver, heart failure; Hypercholesterolemia; Hypertensive disorder; ap3 - Immunization history:: Client reports having NOT received the Covid vaccine. Flu vaccine is not up to date. - Social history:: Smoking status: Patient reports the use of cigarette tobacco products, smokes one pack cigarettes per day. Screenin:02 Abuse screen: Denies threats or abuse. Nutritional screening: No deficits noted. ap3 Tuberculosis screening: No symptoms or risk factors identified. Fall Risk None identified. Assessment: 10:40 General: patient was called back from waiting room, when nurse was notified by ap3 registration that the patient had left. . Vital Signs: 10:00 BP 130 / 88; Pulse 94; Resp 17; Temp 97.5; Pulse Ox 100% ; Weight 74.84 kg; Height 5 ap3 ft. 7 in. (170.18 cm); Pain 9/10; 10:00 Body Mass Index 25.84 (74.84 kg, 170.18 cm) ap3 ED Course: 09:49 Patient arrived in ED. mr 10:01 Triage completed. ap3 10:03 Arm band placed on right wrist. ap3 10:19 Ed Fletcher MD is Attending Physician. kdr Administered Medications: No medications were administered Outcome: 10:50 Patient left the ED. ap3 Signatures: Ed Fletcher MD MD [facility] Sofiya mr Saumya Roper, RN RN ap3
[2021-10-20 10:54] VITALS: BP 130/88; TEMP 97.5; O2SAT 100
== END 2021-10-20 10:50 | disposition left against medical advice (07) ==
LOC: ER 09:46
DX: Z53.21 Procedure and treatment not carried out due to patient leaving prior to being seen by health care provider (principal)
CPT/HCPCS: 99281

== ENCOUNTER 2021-11-26 09:35 | Emergency (ER) | payer SELFPAY ==
--- OUTSIDE RECORDS SUMMARY | 2021-11-26 09:38 | XMS REPORT | Continuity of Care Document ---
:1990 Author Organization [facility] t Address [address] [place] [address] Care Team Providers Name Role Phone PCP, [...] different from the original. ICD10 Diagnosis Term Phone Banker Utility Allergies, Adverse Reactions, Alerts Allergy Allergy [...] Quantity Comments Source Exposure to Not sure [place] of SARS-CoV-2 [place] [facility] (event) Branch History SDOH University o f Alcohol Frequency [place] [facility] History SDAL University o f Alcohol Std [place] [facility] Drinks Branch History SDAL University o f Alcohol Binge [place] [facility] Alcohol intake 2021-06-29 2021-06-29 0 /d University of 00:00:00 00:00:00 [facility] Tobacco Comment 2015-10-16 2015-10-16 quit dipping 8 Unive rsity of 00:00:00 00:00:00 months ago [facility] Alcohol Comment 2015-10-16 2015-10-16 occasionally Univers ity of 00:00:00 00:00:00 [facility] Cigarettes smoked 2015-08-11 2015-08-11 Univers ity of current (pack per 00:00:00 00:00:00 [facility] ) - Reported Branch Cigarette 2015-08-11 2015-08-11 University of pack-years 00:00:00 00:00:00 [facility] Tobacco use and 2015-08-11 2015-08-11 Former user Universi ty of exposure 00:00:00 00:00:00 [facility] Sex Ass[birth year] At [birth year] Universit y of 00:00:00 00:00:00 [facility] Smoking Status Start Date Stop Date Source Current every day smoker 2015-08-11 00:00:00 Uni versity of [facility] Medications Ordered Filled Start Stop Current Ordering [...] Routine gel 3 mL ibuprofen 2020-09 Yes [id number] 600mg Take 1 Univers 600 mg 0-16 tablet by ity of tablet 00:00: mouth [place] 00 every 6 Medical (six) Branch hours as needed for Pain (scale 4-6). ibuprofen 2020-09 Yes [id number] 600mg Take 1 Univers 600 mg 0-16 [...] 05/12/21 at Branch 2300, TRICIA albuterol Yes [id number] 2{puff} Inhale 2 Univers 90 9-09 Puffs ity of mcg/actuati 00:00: every 4 [place] as on inhaler 00 (four) Medical hours as Branch needed for Wheezing or Shortness of Breath. benzonatate Yes [id number] 100mg Take 1 Univers 100 mg 05-12 capsule by ity of capsule 00:00: mouth 3 [place] 00 (three) Medical times Branch daily as needed for Cough. dextrometho Yes [id number] 10mL Take 10 mL Univers rphan-guaif 05-12 by mouth ity of enesin 00:00: every 6 [place] 10-100 mg/5 00 (six) Medical mL solution hours as Bran ch needed for Cough. ondansetron Yes [id number] 4mg Take 1 Univers 4 mg - tablet by ity of disintegrat 00:00: mouth [place] ing tablet 00 every 12 Medic al (twelve) Branch hours as needed for Nausea and Vomiting (N/V). albuterol Yes [id number] 2{puff} Inhale 2 Univers 90 9-09 Puffs ity of mcg/actuati 00:00: every 4 [place] as on inhaler 00 (four) Medical hours as Branch needed for Wheezing or Shortness of Breath. benzonatate 2020-0 Yes [id number] 100mg Take 1 Univers 100 mg 9-09 capsule by ity of capsule 00:00: mouth 3 [place] 00 (three) Medical times Branch daily as needed for Cough. dextrometho 2020-0 Yes [id number] 10mL Take 10 mL Univers rphan-guaif 9-09 by mouth ity of enesin 00:00: every 6 [place] 10-100 mg/5 00 (six) Medical mL solution hours as Bran ch needed for Cough. ondansetron 2020-0 Yes [id number] 4mg Take 1 Univers 4 mg 9-09 tablet by ity of disintegrat 00:00: mouth [place] ing tablet 00 every 12 Medic al (twelve) Branch hours as needed for Nausea and Vomiting (N/V). albuterol 2020-0 Yes [id number] 2{puff} Inhale 2 Univers 90 9-09 Puffs ity of mcg/actuati 00:00: every 4 [place] as on inhaler 00 (four) Medical hours as Branch needed for Wheezing or Shortness of Breath. benzonatate 2020-0 Yes [id number] 100mg Take 1 Univers 100 mg 9-09 capsule by ity of capsule 00:00: mouth 3 [place] 00 (three) Medical times Branch daily as needed for Cough. dextrometho 2020-0 Yes [id number] 10mL Take 10 mL Univers rphan-guaif 9-09 by mouth ity of enesin 00:00: every 6 [place] 10-100 mg/5 00 (six) Medical mL solution hours as Bran ch needed for Cough. ondansetron 2020-0 Yes [id number] 4mg Take 1 Univers 4 mg 9-09 tablet by ity of disintegrat 00:00: mouth [place] ing tablet 00 every 12 Medic al (twelve) Branch hours as needed for Nausea and Vomiting (N/V). albuterol 2020-0 Yes [id number] 2{puff} Inhale 2 Univers 90 9-09 Puffs ity of mcg/actuati 00:00: every 4 [place] as on inhaler 00 (four) Medical hours as Branch needed for Wheezing or Shortness of Breath. benzonatate 2020-0 Yes [id number] 100mg Take 1 Univers 100 mg 9-09 capsule by ity of capsule 00:00: mouth 3 [place] 00 (three) Medical times Branch daily as needed for Cough. dextrometho 2020-0 Yes [id number] 10mL Take 10 mL Univers rphan-guaif 9-09 by mouth ity of enesin 00:00: every 6 [place] 10-100 mg/5 00 (six) Medical mL solution hours as Bran ch needed for Cough. ondansetron 0 Yes [id number] 4mg Take 1 Univers 4 mg 9-09 tablet by ity of disintegrat 00:00: mouth [place] ing tablet 00 every 12 Medic al (twelve) Branch hours as needed for Nausea and Vomiting (N/V). albuterol Yes [id number] 2{puff} Inhale 2 Univers 90 9-09 Puffs ity of mcg/actuati 00:00: every 4 [place] as on inhaler 00 (four) Medical hours as Branch needed for Wheezing or Shortness of Breath. benzonatate 0 Yes [id number] 100mg Take 1 Univers 100 mg 9-09 capsule by ity of capsule 00:00: mouth 3 [place] 00 (three) Medical times Branch daily as needed for Cough. dextrometho 0 Yes [id number] 10mL Take 10 mL Univers rphan-guaif 9-09 by mouth ity of enesin 00:00: every 6 [place] 10-100 mg/5 00 (six) Medical mL solution hours as Bran ch needed for Cough. ondansetron 0 Yes [id number] 4mg Take 1 Univers 4 mg 9-09 tablet by ity of disintegrat 00:00: mouth [place] ing tablet 00 every 12 Medic al (twelve) Branch hours as needed for Nausea and Vomiting (N/V). Immunizations Ordered Filled Immunization Date Status Comments [facility] e Immunization Name Name Td 2015-10-30 Completed University of 00:00:00 [facility] Td 2015-10-30 Completed University of 00:00:00 [facility] Td 2015-10-30 Completed University of 00:00:00 [facility] Td 2015-10-30 Completed University of 00:00:00 [facility] Td 2015-10-30 Completed University of 00:00:00 [facility] Influenza Virus 2015-08-13 Completed Universit y of Vaccine Quad IM 3+ 00:00:00 [facility] [place] Branch Influenza Virus 2015-08-13 Completed Universit y of Vaccine Quad IM 3+ 00:00:00 [facility] Branch Influenza Virus 2015-08-13 Completed Universit y of Vaccine Quad IM 3+ 00:00:00 [facility] Branch Influenza Virus 2015-08-13 Completed Universit y of Vaccine Quad IM 3+ 00:00:00 [facility] [place] [facility] Branch Influenza Virus 2015-08-13 Completed Universit y of Vaccine Quad IM 3+ 00:00:00 [facility] Vital Signs Vital Name Observation Time Observation Value Comments Source Systolic blood 2021-06-30 00:17:00 143 mm[Hg] Univer sity of pressure [facility] Diastolic blood 2021-06-30 00:17:00 91 mm[Hg] Unive rsity of pressure [facility] Heart rate 2021-06-30 00:17:00 83 /min [facility] Body temperature 2021-06-30 00:17:[address] [facility] Respiratory rate 2021-06-30 00:17:00 19 /min [facility] Body height 2021-06-30 00:17:00 172.7 cm [facility] Body weight 2021-06-30 00:17:00 63.866 kg [facility] BMI 2021-06-30 00:17:00 21.41 kg/m2 [facility] Oxygen saturation in 2021-06-30 00:17:00 99 /min [facility] Arterial blood by [facility] Pulse oximetry Branch Systolic blood 2021-06-18 17:22:00 133 mm[Hg] Univer sity of pressure [facility] Diastolic blood 2021-06-18 17:22:00 89 mm[Hg] Unive rsity of pressure [facility] Heart rate 2021-06-18 17:22:00 78 /min Universi ty [facility] Body temperature 2021-06-18 17:22:00 36.78 [facility] Respiratory rate 2021-06-18 17:22:00 20 /min [facility] [place] [facility] Body height 2021-06-18 17:22:00 170.2 cm Universi ty [facility] [place] [facility] Body weight 2021-06-18 17:22:00 68.04 kg Universi ty [facility] [place] [facility] BMI 2021-06-18 17:22:00 23.49 kg/m2 Universi ty [facility] [place] [facility] Oxygen saturation in 2021-06-18 17:22:00 100 /min University of Arterial blood by [facility] Pulse oximetry Branch Systolic blood 2021-05-13 04:00:00 149 mm[Hg] Univer sity of pressure [facility] Diastolic blood 2021-05-13 04:00:00 94 mm[Hg] Unive rsity of pressure [facility] Heart rate 2021-05-13 04:00:00 91 /min Universi ty [facility] [place] [facility] Respiratory rate 2021-05-13 04:00:00 16 /min [facility] [place] [facility] [place] Oxygen saturation in 2021-05-13 04:00:00 99 /min University of Arterial blood by [facility] Pulse oximetry Branch Body height 2021-05-13 02:53:00 170.2 cm Universi ty [facility] [place] [facility] Body weight 2021-05-13 02:53:00 68.04 kg Universi ty [facility] [place] [facility] BMI 2021-05-13 02:53:00 23.49 kg/m2 Universi ty [facility] [place] [facility] Body temperature 2021-05-13 02:53:00 37.78 [place] [facility] Procedure Date / Time Performed Performing Clinician Vicki marshall GENERAL 2021-06-30 00:42:43 Ross Webb [place] [facility] ASSIGNMENT OF BENEFITS 2021-06-30 00:30:21 Doctor Unassigned, No [facility] Medical Branch NOTICE OF PRIVACY 2021-06-30 00:12:01 Doctor Unassigned, No Univ ersity [facility] PRACTICES Name Medical Branch CONSENT/REFUSAL FOR 2021-06-30 00:11:45 [facility] Un[facility], No [facility] Branch TREATMENT ED LACERATION REPAIR 2021-06-18 19:10:50 Tom Mckinney [facility] CONSENT/REFUSAL FOR 2021-06-18 16:57:14 Doctor Unassigned, No Un iversity of [place] DIAGNOSIS AND Name Medical Branch TREATMENT COVID-19 (ID NOW RAPID 2021-05-13 02:59:00 Tee Goodrich [facility] TESTING) [facility] NOTICE OF PRIVACY 2021-05-13 02:39:53 Doctor Unassigned, No [facility] PRACTICES Name [facility] Branch CONSENT/REFUSAL FOR 2021-05-13 02:39:34 Doctor Unassigned, No [facility] [place] DIAGNOSIS AND Name Medical Branch TREATMENT Encounters Start End Encounter Admission Attending Care Care Encounter Source Date/Time Date/Time Type Type Clinicians Facility Department ID 2021-06-29 2021-06-29 Emergency [facility] [id number] Univers 19:20:00 19:56:00 Ross Keller [id number] [id number] [place] [id number] [place] [id number] [place] 2021-06-29 2021-06-29 Emergency X [facility] ERT [id number] Univers 19:20:00 19:56:00 ROSS cunha of [facility] 2021-06-18 2021-06-18 Emergency Tom Mckinney [facility] [id number] Univers 12:30:00 14:34:00 Phuong Keller [id number] i ty [facility] [id number] [place] [id number] [place] [id number] [place] 2021-06-18 2021-06-18 Emergency X [facility] ERT [id number] Univers 11:58:00 11:58:00 ity of [facility] 2021-05-14 2021-05-14 Telephone DELORES Amaya [id number] Univers 00:00:00 00:00:00 Dottie BARRERA [id number] it y [facility] [id number] [place] [id number] [facility] 019 Branch 2021-05-12 2021-05-13 Emergency Joleen [facility] [id number] Univers 22:24:00 00:30:00 Tee Keller [id number] i ty of [place] [id number] [facility] [id number] [facility] 084 Branch 2021-05-13 2021-05-13 Letter DELORES Dean [id number] Univers 00:00:00 00:00:00 (Out) Tracy BARRERA [id number] it y of [facility] [id number] [facility] [id number] [facility] 019 Branch 2021-05-12 2021-05-12 Emergency X JOLEEN [facility] ERT [id number] Univers 21:40:00 21:40:00 TEE ity [facility] Results Test Description Test Time Test Comments Results Result Comments Source COVID-19 (ID NOW RAPID TESTING) 2021-05-13 03:17:35 Test Item Value Reference Range Interpretation Comme nts SARS-CoV-2 Rapid ID NOW (test code Positive Not Detected A = 90149-5) GISELLE (test code = GISELLE) ID NOW COVID-19 Assay is an isothermal nucleic acid amplification test intended for the qualitative detection of nucleic acid from SARS-CoV-2 viral RNA in nasopharyngeal (SLITTER SCORER) specimens. It is used under Emergency Use [...] indicated. Lab Interpretation (test code = Abnormal 54191-2) [facility]
[2021-11-26] MEDS ORDERED: IBUPROFEN 400 MG TAB ONE (10:09)
[2021-11-26] MEDS ORDERED: IBUPROFEN 200 MG TAB PO ONE (10:09)
[2021-11-26 11:26] LABS: SARS-COV-2 RT PCR NEGATIVE (NEGATIVE)
--- NOTE | 2021-11-26 12:17 | EDPHYS ---
Physician Documentation [facility] Name: Jose J Hanks Age: 31 yrs Sex: Male : 1990 Arrival Date: 11/26/2021 Time: 09:37 Bed 19 Private MD: ED Physician Derek Caraballo HPI: 11/26 10:09 This 31 yrs old Male presents to ER via Ambulatory with complaints of pm1 Headache, Sore Throat. 10:09 The patient complains of pain to the forehead. The patient describes the headache as pm1 aching. Onset: The symptoms/episode began/occurred this morning. Associated signs and symptoms: Pertinent positives: sinus headache, stuffy nose, rhinorrhea, subjective fever, occasional cough, Pertinent negatives: chest pain, sob. 10:09 The symptoms are alleviated by nothing. the symptoms are aggravated by nothing. The pm1 patient has not experienced similar symptoms in the past. The patient has not recently seen a physician. Patient's mom positive for influenza. Historical: - Allergies: 10:00 mushrooms; iw - Home Meds: 10:00 None [Active]; iw - PMHx: 10:00 bad liver, heart failure; Hypercholesterolemia; Hypertensive disorder; iw - PSHx: 10:00 None; iw - Immunization history:: Client reports having NOT received the Covid vaccine. - Social history:: Smoking status: Patient reports the use of cigarette tobacco products, smokes one-half pack cigarettes per day. ROS: 10:09 Cardiovascular: Negative for chest pain, palpitations, and edema. pm1 10:09 Abdomen/GI: Negative for abdominal pain, nausea, vomiting, diarrhea, and constipation, Back: Negative for injury and pain, : Negative for injury, bleeding, discharge, and swelling, MS/Extremity: Negative for injury and deformity, Skin: Negative for injury, rash, and discoloration. 10:09 Constitutional: Positive for body aches, Negative for poor PO intake. 10:09 Respiratory: Positive for cough, Negative for shortness of breath. 10:09 Neuro: Positive for headache, Negative for numbness, tingling, weakness. 10:09 All other systems are negative. Exam: 10:09 Constitutional: This is a well developed, well nourished patient who is awake, alert, pm1 and in no acute distress. Head/Face: Normocephalic, atraumatic. 10:09 Back: No spinal tenderness. No costovertebral tenderness. Full range of motion. Skin: Warm, dry with normal turgor. Normal color with no rashes, no lesions, and no evidence of cellulitis. MS/ Extremity: Pulses equal, no cyanosis. Neurovascular intact. Full, normal range of motion. 10:09 Eyes: Exam is negative for acute changes, Periorbital structures: appear normal, Extraocular movements: intact throughout, Conjunctiva: no acute changes. 10:09 ENT: Exam is negative for acute changes, Mouth: no acute changes, Lips: normal, moist, Oral mucosa: normal, pink and intact, moist, Posterior pharynx: no acute changes. 10:09 Cardiovascular: Exam negative for acute changes, Rate: normal, Rhythm: regular, Pulses: no pulse deficits are appreciated, Heart sounds: normal. 10:09 Respiratory: Exam negative for acute changes, respiratory distress, shortness of breath. 10:09 Neuro: Exam negative for acute changes, Orientation: is normal, Mentation: is normal, Motor: is normal, moves all fours. Vital Signs: 09:58 BP 132 / 88; Pulse 99; Resp 18 S; Temp 99.9; Pulse Ox 98% on R/A; Weight 74.84 kg; iw Height 5 ft. 7 in. (170.18 cm); 11:21 BP 125 / 76; Pulse 84; Resp 16 S; Temp 99.0(O); Pulse Ox 96% on R/A; jd3 12:38 BP 110 / 66; Pulse 85; Resp 16 S; Pulse Ox 97% on R/A; jd3 09:58 Body Mass Index 25.84 (74.84 kg, 170.18 cm) iw MDM: 09:49 Patient medically screened. pm1 12:16 Data reviewed: vital signs. Data interpreted: Pulse oximetry: on room air is 96 %. pm1 Interpretation: normal. Counseling: I had a detailed discussion with the patient and/or guardian regarding: the historical points, exam findings, and any diagnostic results supporting the discharge/admit diagnosis, lab results, the need for outpatient follow up, to return to the emergency department if symptoms worsen or persist or if there are any questions or concerns that arise at home. 11/26 10:01 Order name: COVID-19/FLU A+B (Document "Date of Onset" if Symptomatic); Complete Time: pm1 12:00 11/26 10:01 Order name: Strep; Complete Time: 11:38 pm1 11/26 11:39 Order name: Throat Culture EDMS Administered Medications: 10:09 Drug: Ibuprofen 600 mg Route: PO; jd3 11:00 Follow up: Response: No adverse reaction jd3 Disposition Summary: 11/26/21 12:17 Discharge Ordered Location: Home pm1 Problem: new pm1 Symptoms: have improved pm1 Condition: Stable pm1 Diagnosis - Influenza due to identified novel influenza A virus pm1 Followup: pm1 - With: Emergency Department - When: As needed - Reason: Worsening of condition Followup: pm1 - With: Private Physician - When: 2 - 3 days - Reason: Recheck today's complaints, Continuance of care, Re-evaluation by your physician Discharge Instructions: - Discharge Summary Sheet pm1 - Influenza, Adult pm1 Forms: - Medication Reconciliation Form pm1 - Thank You Letter pm1 - Antibiotic Education pm1 - Prescription Opioid Use pm1 - Work release form jd3 Prescriptions: - Tamiflu 75 mg Oral Capsule - take 1 tablet by ORAL route every 12 hours for 5 days; 10 tablet; Refills: 0, pm1 Product Selection Permitted Addendum: 11/30/2021 07:03 Co-signature as Attending Physician, Derek Caraballo MD I agree with the assessment and c lala plan of care. Signatures: Dispatcher [employer] Derek Rajan MD MD cha Williams, Irene, RN RN iw Marinas, Patrick, NP CHEMIST INSTRUMENTATION pm1 Dong Chaudhary RN RN jd3
--- NOTE | 2021-11-26 12:17 | ER ---
Nurse's Notes [facility] Name: Jose J Hanks Age: 31 yrs Sex: Male : 1990 Arrival Date: 11/26/2021 Time: 09:37 Bed 19 Private MD: Diagnosis: Influenza due to identified novel influenza A virus Presentation: 11/26 09:58 Chief complaint: Patient states: headache, sore throat, subjective fever since this iw morning, his mother was recently diagnosed with the flu. Coronavirus screen: Client presents with at least one sign or symptom that may indicate coronavirus-19. Ebola Screen: Patient negative for fever greater than or equal to 101.5 degrees Fahrenheit, and additional compatible Ebola Virus Disease symptoms Patient denies exposure to infectious person. Patient denies travel to an Ebola-affected area in the 21 days before illness onset. No symptoms or risks identified at this time. Initial Sepsis Screen: Does the patient meet any 2 criteria? No. Patient's initial sepsis screen is negative. Does the patient have a suspected source of infection? No. Patient's initial sepsis screen is negative. Risk Assessment: Do you want to hurt yourself or someone else? Patient reports no desire to harm self or others. Onset of symptoms was November 26, 2021. 09:58 Method Of Arrival: Ambulatory iw 09:58 Acuity: BRICE 4 iw Triage Assessment: 10:01 Headache History: Denies prior headaches. jd3 Historical: - Allergies: 10:00 mushrooms; iw - Home Meds: 10:00 None [Active]; iw - PMHx: 10:00 bad liver, heart failure; Hypercholesterolemia; Hypertensive disorder; iw - PSHx: 10:00 None; iw - Immunization history:: Client reports having NOT received the Covid vaccine. - Social history:: Smoking status: Patient reports the use of cigarette tobacco products, smokes one-half pack cigarettes per day. Screenin:01 Abuse screen: Denies threats or abuse. Nutritional screening: No deficits noted. jd3 Tuberculosis screening: No symptoms or risk factors identified. Fall Risk Ambulatory Aid- None/Bed Rest/Nurse Assist (0 pts). Gait- Normal/Bed Rest/Wheelchair (0 pts) Mental Status- Oriented to own ability (0 pts). Total Wallace Fall Scale indicates No Risk (0-24 pts). Assessment: 09:59 General: Appears in no apparent distress. comfortable, Behavior is calm, cooperative, jd3 appropriate for age. Pain: Complains of pain in generalized body aches Quality of pain is described as aching. Neuro: Level of Consciousness is awake, alert, obeys commands, Oriented to person, place, time, situation. Cardiovascular: Denies chest pain, Heart tones present Capillary refill < 3 seconds Patient's skin is warm and dry. Respiratory: Reports cough that is dry, Airway is patent Respiratory effort is even, unlabored, Respiratory pattern is regular, symmetrical, Breath sounds are clear bilaterally. Denies shortness of breath. GI: Abdomen is non-distended, Abd is soft and non tender X 4 quads. Reports nausea. : No signs and/or symptoms were reported regarding the genitourinary system. EENT: No signs and/or symptoms were reported regarding the EENT system. Derm: Skin is intact, Skin is dry, Skin is normal, Skin temperature is warm. Musculoskeletal: Circulation, motion, and sensation intact. Range of motion: intact in all extremities. 11:18 Reassessment: Patient appears in no apparent distress at this time. No changes from jd3 previously documented assessment. Patient and/or family updated on plan of care and expected duration. Pain level reassessed. Patient is alert, oriented x 3, equal unlabored respirations, skin warm/dry/pink. 12:38 Reassessment: Patient appears in no apparent distress at this time. Patient and/or jd3 family updated on plan of care and expected duration. Pain level reassessed. Patient is alert, oriented x 3, equal unlabored respirations, skin warm/dry/pink. Patient states feeling better. Vital Signs: 09:58 BP 132 / 88; Pulse 99; Resp 18 S; Temp 99.9; Pulse Ox 98% on R/A; Weight 74.84 kg; iw Height 5 ft. 7 in. (170.18 cm); 11:21 BP 125 / 76; Pulse 84; Resp 16 S; Temp 99.0(O); Pulse Ox 96% on R/A; jd3 12:38 BP 110 / 66; Pulse 85; Resp 16 S; Pulse Ox 97% on R/A; jd3 09:58 Body Mass Index 25.84 (74.84 kg, 170.18 cm) iw ED Course: 09:37 Patient arrived in ED. rg4 09:49 Genaro Mittal NP is PHCP. pm1 09:49 Derek Caraballo MD is Attending Physician. pm1 09:53 Dong Chaudhary, RN is Primary Nurse. jd3 10:00 Triage completed. iw 10:00 Arm band placed on. iw 10:01 Patient has correct armband on for positive identification. Bed in low position. Call jd3 light in reach. Side rails up X 1. Adult w/ patient. Pulse ox on. NIBP on. 10:07 COVID swab sent to lab. Strep swab sent to lab. mb7 10:08 Door closed. Noise minimized. Warm blanket given. mb7 12:38 No provider procedures requiring assistance completed. Patient did not have IV access jd3 during this emergency room visit. Administered Medications: 10:09 Drug: Ibuprofen 600 mg Route: PO; jd3 11:00 Follow up: Response: No adverse reaction jd3 Outcome: 12:17 Discharge ordered by MD. pm1 12:38 Discharged to home ambulatory, with family. jd3 12:38 Condition: stable 12:38 Discharge instructions given to patient, Instructed on discharge instructions, follow up and referral plans. Demonstrated understanding of instructions, follow-up care, Prescriptions given X 1. 12:38 Patient left the ED. jd3 Signatures: Shazia Kumar, ANAHY HIGGINBOTHAM Genaro Mittal NP WEIGHBRIDGE OPERATOR pm1 GeorgeReannai rg4 Dong Chaudhary RN RN Sofiya Monaco mb7
[2021-11-26 12:45] VITALS: TEMP 99
[2021-11-26 12:47] VITALS: BP 110/66; O2SAT 97
== END 2021-11-26 12:38 | disposition home or self-care (01) ==
LOC: ER 09:35
DX: J10.1 Influenza due to other identified influenza virus with other respiratory manifestations (principal); Z20.822 Contact with and (suspected) exposure to COVID-19; I10 Essential (primary) hypertension; F17.210 Nicotine dependence, cigarettes, uncomplicated; Z91.018 Allergy to other foods
CPT/HCPCS: 0240U; 87070; 87081; 99284